=== PATIENT | female | born 1955 | race Caucasian/White ===

== ENCOUNTER → 2016-10-03 | Outpatient (CLI) | payer OTHER ==
--- NOTE | 2016-10-04 08:33 | DX ---
DEXA Bone Densitometry Technique: DEXA scan was performed on [facility] Discovery W Bone Densitometer Indication: Osteopenia Comparator Study: June 16, 2014 Results: Lumbar Spine BMD: 0.893 T-score: -1.4 Prior BMD: 0.849 % change: 5.2% Total Hip (Right) BMD: 0.79 T-score: -1.2 Femoral Neck (Right) BMD: 0.682 T-score: -1.5 Total Hip (Left) BMD: 0.867 T-score: -0.6 Prior BMD: 0.905 % change: -4.3% Femoral Neck (Left) BMD: 0.725 T-score: -1.1 CONCLUSION: Osteopenia ADDITIONAL COMMENTS: In comparison to the previous study from May 2014, there was an increase in bone mineral density of the lumbar spine, and a decrease in bone mineral density of the total left hip, however the scan t ypes were dissimilar. 5. By FRAX calculation, the estimated 10 year probability of any major osteoporotic fracture is 12% a nd estimated 10 year probability of hip fracture is 1%. Consider repeating the study in 2 years or as clinically indicated NOTE: The risk of osteoporotic fractures increases approximately twofold for each 1.0 SD decrease in T-score. The T-score represents the standard deviations from a young normal, same sex, reference po pulation. Low bone density is not the only risk factor for fracture. Clinical factors to consider include fall risk, previous osteoporotic fractures, family history of fractures, smoking, and low body weight. Patients who have an unexpectedly low BMD may need to be evaluated for secondary causes of low bone m ineral density. In comparing the present study to a prior study, lack of a significant increase or decrease in BMD ma y signify efficacy of the patient's present treatment. Bone mineral density measurements performed with densitometers produced by different manufacturers ar e not comparable. For the most reproducible BMD measurement, subsequent exams should be performed on the same densitometer.
== END ==
LOC: BMCIMAGING 10:45
PROVIDERS: ATTEND Internal Medicine
DX: Z13.820 Encounter for screening for osteoporosis (principal); M85.80 Other specified disorders of bone density and structure, unspecified site

== ENCOUNTER → 2017-06-21 | Outpatient (CLI) | payer OTHER | LOC: FIMAGING 07:40 | PROVIDERS: ATTEND Internal Medicine | DX: Z12.31 Encounter for screening mammogram for malignant neoplasm of breast (principal) | CPT/HCPCS: G0202 ==

== ENCOUNTER → 2018-06-22 | Outpatient (CLI) | payer OTHER | LOC: FIMAGING 10:48 | PROVIDERS: ATTEND Internal Medicine | DX: Z12.31 Encounter for screening mammogram for malignant neoplasm of breast (principal) ==